=== PATIENT | male | born 1955 | race Asian ===

== ENCOUNTER 2020-04-17 07:51 | Outpatient (REF) | payer OTHER, SELFPAY ==
--- NOTE | 2020-04-17 | XR_ITS ---
EXAMINATION: XR CHEST CLINICAL INFORMATION: Nicotine dependence COMPARISON: None TECHNIQUE: 2 views of the chest were obtained. FINDINGS: Cardiac silhouette is normal in size. The lungs are well aerated. Subtle linear opacity of the left lower lobe likely represents atelectasis versus scarring. No lobar consolidation. No pleural effusion or pneumothorax. Moderate degenerative changes of the spine. XR/XR chest 2V IMPRESSION: No acute pulmonary pathology.
[2020-04-17 08:28] LABS: MANUAL DIFF FLAG NO
[2020-04-17 08:29] LABS: Basophils Percent Auto 0.7 % (0-2); Eosinophils Absolute Auto 0.3 X10*3/uL (0.0-0.4); Eosinophils Percent Auto 4.3 % (0-4); Hematocrit 45.9 % (42-52); Hemoglobin 16.1 g/dl (14.0-18.0); Imm Gran Abs Auto 0.02 X10*3/uL (0.00-0.03); Imm Gran Pct Auto 0.3 % (0.0-0.4); Lymphocytes Absolute Auto 1.9 X10*3/uL (1.2-4.9); Lymphocytes Percent Auto 33.2 % (20-40); Mean Corpuscular HGB Conc 35.1 g/dl (31.0-36.0); Mean Corpuscular Hemoglobin 32.1 pg (27.0-33.0); Mean Corpuscular Volume 91.4 fL (80-98); Mean Platelet Volume 10.9 fL (9.4-12.4); Monocytes Absolute Auto 0.5 X10*3/uL (0.1-1.2); Monocytes Percent Auto 8.8 % (2-11); Neutrophils Absolute Auto 3.1 X10*3/uL (2.0-8.3); Neutrophils Percent Auto 52.7 % (45-73); Platelet Count 167 X10*3/uL (160-400); Red Blood Count 5.02 X10*6/uL (4.60-5.80); Red Cell Distribution Width 12.3 % (11.0-16.0); White Blood Count 5.8 X10*3/uL (4.8-10.8)
[2020-04-17 08:48] LABS: Glucose Urine UA NEG (NEG); Leukocyte Esterase Urine NEG (NEG); Nitrite Urine NEG (NEG); PH 6.5 (5.0-8.0); Urine Blood TRACE (NEG); Urine Ketones NEG (NEG); Urine Protein NEG (NEG-TRACE)
[2020-04-17 08:50] LABS: Appearance Urine CLEAR; Color Urine YELLOW
[2020-04-17 08:58] LABS: RBC Urine 0-2 /HPF (0); WBC Urine 0 /HPF (0-4)
[2020-04-17 09:07] LABS: Alanine Aminotransferase 26 U/L (0-40); Albumin Level 4.5 g/dL (3.5-5.0); Alkaline Phosphatase 63 U/L (39-117); Anion Gap 12 (12-20); Aspartate Amino Transferase 22 U/L (5-37); Bilirubin Total 0.4 mg/dL (0.0-1.0); Blood Urea Nitrogen 16 mg/dL (9-16); Calcium 9.3 mg/dL (8.4-10.2); Carbon Dioxide 30 mmol/L (22-29); Chloride 100 mmol/L (96-108); Cholesterol 220 mg/dL; Estimated Glomerular Filt Rate > 60; Glucose Fasting 111 mg/dL (60-99); HDL Cholesterol 42 mg/dL; LDL Cholesterol Calculated 131 mg/dl; Potassium 4.5 mmol/l (3.3-5.1); Sodium 137 mmol/L (135-145); Total Protein 7.2 g/dL (6.5-8.0); Triglycerides 237 mg/dL
[2020-04-17 09:27] LABS: Prostate Specific Antigen 0.93 ng/mL (<0.05-4.0)
== END 2020-04-17 07:52 | disposition home or self-care (01) ==
LOC: HO.LAB 07:51
PROVIDERS: PCP Internal Medicine; Visit Provider Internal Medicine
DX: G56.01 Carpal tunnel syndrome, right upper limb (principal); F17.219 Nicotine dependence, cigarettes, with unspecified nicotine-induced disorders
CPT/HCPCS: 36415; 71046; 80053; 80061; 81001; 84153; 85025

== ENCOUNTER 2020-09-23 08:12 | Outpatient (REF) | payer OTHER, SELFPAY ==
--- NOTE | ~2020-09-23 | XR_ITS ---
EXAMINATION: XR CHEST CLINICAL INFORMATION: Smoker COMPARISON: None TECHNIQUE: PA and lateral views of the chest were obtained. FINDINGS: There is asymmetric elevation of the right hemidiaphragm. Linear opacities in the left midlung likely correspond to atelectasis or pleural parenchymal scarring. No focal consolidation is identified. No pneumothorax or pleural effusion. Cardiac and mediastinal contours are normal. Pulmonary vasculature is unremarkable. No acute osseous findings. XR/XR chest 2V IMPRESSION: Mild elevation of the right hemidiaphragm which is of uncertain chronicity and etiology in the absence of comparison images. No acute pulmonary findings.
== END 2020-09-23 08:13 | disposition home or self-care (01) ==
LOC: HO.XRAY 08:12
PROVIDERS: PCP Internal Medicine; Visit Provider Internal Medicine
DX: Z87.891 Personal history of nicotine dependence (principal)
CPT/HCPCS: 71046

== ENCOUNTER 2021-01-06 07:35 | Outpatient (REF) | payer OTHER, SELFPAY ==
--- NOTE | ~2021-01-06 | XR_ITS ---
EXAMINATION: XR CHEST CLINICAL INFORMATION: Smoking history COMPARISON: Previous chest x-rays most recent September 2020 and older chest x-ray April 2020 TECHNIQUE: 2 views of the chest were obtained. FINDINGS: The cardiac and mediastinal contours are stable. There is elevation of the right hemidiaphragm. This is similar to most recent exam September 2020 but new from older exam April 2020. There is no pleural effusion or pneumothorax. There are degenerative changes of the spine. XR/XR chest 2V IMPRESSION: Elevation of the right hemidiaphragm. This is similar to most recent exam September 2020 but new from older exam April 2020. Otherwise unremarkable exam.
--- NOTE | ~2021-01-06 | XR_ITS ---
EXAMINATION: XR CERVICAL SPINE CLINICAL INFORMATION: Dizziness. COMPARISON: None. TECHNIQUE: 4 views of the cervical spine were obtained. FINDINGS: No abnormal prevertebral soft tissue swelling is seen. No acute fracture is noted. There is prominent anterior marginal spurring seen C4-C7. There is narrowing of the C6-C7 disc space. XR/XR cervical spine 3V IMPRESSION: Cervical spondylosis C4-C7 which is most significant at the C6-C7 level.
== END 2021-01-06 07:36 | disposition home or self-care (01) ==
LOC: HO.XRAY 07:35
PROVIDERS: PCP Internal Medicine; Visit Provider Internal Medicine
DX: R42 Dizziness and giddiness (principal); F17.219 Nicotine dependence, cigarettes, with unspecified nicotine-induced disorders
CPT/HCPCS: 71046; 72040

== ENCOUNTER → 2021-01-21 07:25 | Outpatient (BNVA) | payer OTHER, SELFPAY | PROVIDERS: PCP Internal Medicine; Visit Provider Nurse Practitioner Family | DX: Z12.11 Encounter for screening for malignant neoplasm of colon (principal) | CPT/HCPCS: 99202 ==

== ENCOUNTER 2021-02-28 14:42 | Outpatient (REF) | payer OTHER, SELFPAY ==
--- NOTE | ~2021-02-28 | CT_ITS ---
EXAMINATION: CT ABDOMEN WITHOUT CONTRAST CLINICAL INFORMATION: Spondylosis COMPARISON: None TECHNIQUE: Contiguous axial thin section helical images of the abdomen were performed without contrast. The data set was reformatted in the coronal and sagittal planes and reviewed on an independent workstation. This CT examination was performed using dose optimization techniques as appropriate, variously including the following: *Automated exposure control *Adjustment of mA and/or kV according to patient size (this includes techniques or standardized protocols for targeted exams where dose is matched to indication/reason for exam; i.e. extremities or head) *Use of iterative reconstruction technique DLP: 301 mGy-cm FINDINGS: LUNG BASES: There is mild atelectatic changes right lung base. Heart size is normal. LIVER, GALLBLADDER, BILIARY TREE: The liver is normal size, shape and contour. No focal lesion or intrahepatic ductal dilatation seen. The gallbladder is contracted and appears unremarkable. PANCREAS: The pancreas is homogeneous in density and normal size. SPLEEN: The spleen is normal size, shape and density. ADRENAL GLANDS AND KIDNEYS: There is a left adrenal lesion measuring 1.6 x 1.3 cm -6.37 Hounsfield units. The right adrenal gland is normal. The kidneys are symmetrical and normal. There is a 1.9 cm midpole left renal cyst. There is a 3 mm nonobstructive radiopaque calculi mid pole left kidney. BOWEL LOOPS: There is scattered stool and gas seen throughout the colon without distention. The small bowel loops are normal caliber. Appendix is normal caliber. No free air or free fluid seen. There is a left paraumbilical hernia containing fat. LYMPH NODES: There are small shotty lymph nodes. VASCULAR: The abdominal aorta is normal caliber. The IVC is normal caliber. BONES: There are degenerative disc changes and vacuum disc phenomena at L4-L5 disc levels with mild ventral and dorsal spondylosis. CT/CT abdomen wo con IMPRESSION: Significant radiopaque calculi and partially exophytic cyst midpole left kidney. No caliectasis or hydronephrosis. 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 It has been stable since the previous study. Left paraumbilical hernia containing fat
== END 2021-02-28 14:43 | disposition home or self-care (01) ==
LOC: HO.CT 14:42
PROVIDERS: Visit Provider Internal Medicine
DX: M43.02 Spondylolysis, cervical region (principal); K44.9 Diaphragmatic hernia without obstruction or gangrene
CPT/HCPCS: 74150

== ENCOUNTER 2021-03-30 07:00 | Outpatient (RCR) | payer OTHER, SELFPAY | END 2021-03-30 11:46 | disposition home or self-care (01) | LOC: HO.PTCHIC 07:00 | PROVIDERS: PCP Internal Medicine; Visit Provider Internal Medicine | DX: M43.02 Spondylolysis, cervical region (principal) | CPT/HCPCS: 97110; 97140; 97161; 97162 ==

== ENCOUNTER 2021-04-08 12:43 | Day surgery (SDC) | payer OTHER, SELFPAY ==
[2021-02-23 10:21] VITALS: BMI 30.2
--- NOTE | 2021-02-25 11:56 | HO.ANESPROP2 ---
HPI - Anesthesia Eval Consult details Narrative: 66yo M for Colonoscopy [facility] Past Medical History Medical History Smoker Surgical History Surgical History Hx of umbilical hernia repair Social History Social History (Updated 01/21/21 @ 08:13 by Jenni Miramontes) Household Members: Spouse Alcohol intake: never Patient Tobacco Use Status: Current everyday Tobacco user Tobacco use type: Cigarette Meds Allergies Allergy/AdvReac Type Severity Reaction Status Date / Time No Known Allergies Allergy Verified 01/21/21 08:09 Exam Exam Date and Time: February 25, 2021 1156 Height,Weight and Vital Signs: Height 5 ft 5 in Weight 82.554 kg
--- NOTE | 2021-04-07 10:45 | P.CONAN_ITS ---
Documented by User: Donya Zuñiga NP 04/07/21 10:45 HPI - Anesthesia Eval Consult details Narrative: 66yo M for Colonoscopy [facility] Past Medical History Medical History Cervical spondylosis Elevated cholesterol Smoker Surgical History Surgical History Hx of umbilical hernia repair Social History Social History Household Members: Spouse Alcohol intake: never Patient Tobacco Use Status: Current everyday Tobacco user Tobacco use type: Cigarette Cigarette Packs Per Day: 1 Cigarettes Per Day: 20.0 Years Smoked: 40 Smoked in Last 30 Days: Yes Use of substances other than those prescribed or required for medical reasons: No Are you DNR?: No Advance Directives: No Advance Directives Information Provided: Yes Meds Allergies Allergy/AdvReac Type Severity Reaction Status Date / Time No Known Allergies Allergy Verified 01/21/21 08:09 Home Medications Medication Instructions Recorded Confirmed Last Taken Type atorvastatin 10 mg tablet 1 tab PO DAILY 04/01/21 04/01/21 Unknown History bupropion HCl 100 mg tablet 1 tab PO BID 04/01/21 04/01/21 Unknown History Exam Exam Date and Time: April 07, 2021 1045 Height,Weight and Vital Signs: Height 5 ft 5 in Weight 82.554 kg Assessment and Plan Assessment Anesthesia Assessment: Chart Reviewed Documented by User: Angelika Beckford MD 04/08/21 13:30 [facility] Past Medical History Medical History Cervical spondylosis Elevated cholesterol Smoker Surgical History Surgical History Hx of umbilical hernia repair History of Problems with Anesthesia: No Social History Social History Household Members: Spouse Alcohol intake: never Patient Tobacco Use Status: Current everyday Tobacco user Tobacco use type: Cigarette Cigarette Packs Per Day: 1 Cigarettes Per Day: 20.0 Years Smoked: 40 Smoked in Last 30 Days: Yes Use of substances other than those prescribed or required for medical reasons: No Are you DNR?: No Advance Directives: No Advance Directives Information Provided: Yes Meds Allergies Allergy/AdvReac Type Severity Reaction Status Date / Time No Known Allergies Allergy Verified 01/21/21 08:09 Home Medications Medication Instructions Recorded Confirmed Last Taken Type atorvastatin 10 mg tablet 1 tab PO DAILY 04/01/21 04/01/21 Unknown History bupropion HCl 100 mg tablet 1 tab PO BID 04/01/21 04/01/21 Unknown History Exam Airway Mallampati Class: II (Edentulous) TM Dist: >3cm Neck ROM: Full Denture: Upper Partial: Lower Loose/Missing/Broken Teeth: Yes, Upper and Lower Heart: RRR Lungs: CTA Assessment and Plan Assessment Anesthesia Assessment: Anesthesia Plan Discussed Final Anesthetic Review History of Problems with Anesthesia: No NPO: Yes ASA Class: II Final Preanesthetic Review: Meds/Allgs Chart Reviewed, Consent Obtained/Reviewed and Anes Risks/Benef Reviewed Patient Risk: Low Procedure Risk: Low Anesthetic Plan Anesthetic Plan: MAC: Disposition: Standard PACU
[2021-04-08 13:12] VITALS: BMI 29.9
[2021-04-08 13:14] VITALS: BP 117/83; PULSE 78; RESP 16; TEMP 36.7; O2SAT 98
--- NOTE | 2021-04-08 13:14 | MHC.SHP ---
Pre-Procedural Eval Section A Date of Service: 04/08/21 The patient is an INPATIENT: No The History & Physical has been completed within 30 days and I have reviewed it.: No Section B Chief Complaint: Screening Relevant Family History (Specify if Yes): No Relevant Social History: Tobacco Use Present Medications: see Short Stay Collaborative assessment Medical History: No relevant PMH History of Previous Operations: Relevant previous surgery/procedure and date(s) (Hx of umbilical hernia repair) Allergies: Allergies Allergy/AdvReac Type Severity Reaction Status Date / Time No Known Allergies Allergy Verified 01/21/21 08:09 Review of Systems Sugical H&P ROS: Negative: Constitution, Cardiovascular, Respiratory and Gastrointestinal Exam Surgical H&P Exam: Normal: Heart, Normal: Lungs, Normal: Extremities and Normal: Abdomen Plan I have reviewed the history and physical and performed a pertinent physical examination on my patient. No changes have occurred unless specified.
--- NOTE | 2021-04-08 13:15 | PC.NURSE ---
Patient in preop. States he drank a cup of black coffee at 0600 this morning. No milk or sugar in coffee. Patient also states that he finished his prep this am with 5-6 water bottles. Last water bottle was finished at about 1200. Dr. Beckford made aware and came to bedside. Dr. Beckford verified with patient again the times and amounts of liquid consumed this AM. Patient states no solids were consumed since yesterday. No new orders. Okay to proceed with procedure.
[2021-04-08] MEDS: Lactated Ringers 1,000 ML 100 ML IVCONT (13:27)
--- NOTE | 2021-04-08 14:03 | P.OP_ITS ---
Operative Note Operative Note Date of Service: 04/08/21 Narrative: Pre-op diagnosis:?Colon cancer screening Post-op diagnosis:?other (Colon polyps, diverticulosis, hemorrhoids) Procedure:? COLONOSCOPY TILL CECUM WITH BIOPSIES AND SNARE POLYPECTOMY Consent: Indications for the procedure and potential complications of bleeding, perforation, reaction to medications and missed diagnosis were discussed with the patient and informed consent was obtained. Instrument: Olympus PCF H 190 L variable stiffness pediatric colonoscope Monitoring: Vital signs and clinical assessment, intermittent blood pressure monitoring, continuous EKG monitoring, Pulse oximetry and Carbon Dioxide monitoring were done throughout the procedure. Colon withdrawl time was 22 minutes. Procedure: The patient was placed in the left lateral decubitis position and pre-procedure medications were administered. After a digital rectal examination of the ano-rectum, the video colonoscope was inserted into the rectum and advanced through the colon to the cecum. The colonoscope was slowly withdrawn in a retrograde panoramic fashion and the colon mucosa was carefully examined including a retroflexed view of the rectum. Findings and interventions are described below. Procedure Difficulty: Without difficulty Findings: Terminal Ileum: Not evaluated Cecum:? Normal Ascending Colon:? Normal Transverse Colon:? Two 8- 10 mm sessile polyp removed with a cold snare. A 3-4 mm sessile polyp removed with the cold biopsy Descending Colon:? Normal Sigmoid Colon:? A 7-8 mm sessile polyp removed with a cold snare. A 10-12 mm diminutive appearing polyp at 30 cms - biopsied. Two 12-15 mm sessile polyps removed with a hot snare. Moderate diverticulosis Rectum:? Normal Ano-rectum:? Moderate internal hemorrhoids Colon preparation: Excellent ? Impression and Post Procedure Diagnosis: Colonoscopy Findings: Seven small to medium sized polyps removed Moderate diverticulosis seen in the sigmoid colon Moderate hemorrhoids on retroflexed exam. Plan: Await pathology results Patient has an appointment on 04/22/21 in the GI Clinic with ? Isabel York, WILLIAM-NIESHA . Repeat Colonoscopy interval based on path results - in 3 years if polyps are adenomatous and 10 years if polyps are hyperplastic. Above findings were reviewed with the patient and colon polyps and diverticulosis handouts were given in the discharge area Surgeon:?Neal Sears MD Anesthesia:?MAC (Yuliet Styles CRNA) Was an Accredited Farm Manager used for this Procedure?:?Yes Accredited Farm Manager:?Marlene Rivas Estimated blood loss (mL):?0 Pathology:?other (A. transverse colon polyps (3)? B. sigmoid polyp? C. polyp at 30 cm? D. polyps at 25 cm (2)) Condition:?stable Disposition:?PACU
[2021-04-08 15:06] VITALS: BP 96/55; PULSE 68; RESP 19; TEMP 36.4; O2SAT 99
[2021-04-08 15:21] VITALS: BP 122/68; PULSE 66; RESP 18; O2SAT 99
[2021-04-08 15:34] VITALS: BP 111/54; PULSE 68; RESP 18; TEMP 36.4; O2SAT 100
== END 2021-04-08 15:53 | disposition home or self-care (01) ==
PROVIDERS: PCP Internal Medicine; Visit Provider Internal Medicine Gastroenterology
PROC: 0DJD8ZZ Inspection of Lower Intestinal Tract, Via Natural or Artificial Opening Endoscopic (ICD-10-PCS; CPT 45378; principal; 2021-04-08 13:40)
DX: Z12.11 Encounter for screening for malignant neoplasm of colon (principal); D12.3 Benign neoplasm of transverse colon; D12.4 Benign neoplasm of descending colon; K57.30 Diverticulosis of large intestine without perforation or abscess without bleeding; K64.8 Other hemorrhoids; F17.210 Nicotine dependence, cigarettes, uncomplicated
CPT/HCPCS: 45385; 45380; 88305

== ENCOUNTER → 2021-04-22 08:39 | Outpatient (BNVA) | payer OTHER, SELFPAY | PROVIDERS: PCP Internal Medicine; Visit Provider Nurse Practitioner Family | DX: K57.90 Diverticulosis of intestine, part unspecified, without perforation or abscess without bleeding (principal); K64.8 Other hemorrhoids; D36.9 Benign neoplasm, unspecified site; Z98.890 Other specified postprocedural states | CPT/HCPCS: 99212 ==

== ENCOUNTER → 2021-07-22 07:47 | Outpatient (BNVA) | payer OTHER, SELFPAY | PROVIDERS: PCP Internal Medicine; Visit Provider Nurse Practitioner Family | DX: K57.90 Diverticulosis of intestine, part unspecified, without perforation or abscess without bleeding (principal) | CPT/HCPCS: 99212 ==

== ENCOUNTER → 2022-09-11 07:46 | Outpatient (BNVA) | payer MEDICARE, MEDICAID, SELFPAY | PROVIDERS: PCP Internal Medicine; Referring Provider Internal Medicine; Visit Provider Nurse Practitioner Family | DX: K57.90 Diverticulosis of intestine, part unspecified, without perforation or abscess without bleeding (principal) | CPT/HCPCS: 99212 ==

== ENCOUNTER 2022-12-19 07:49 | Outpatient (AMB) | payer MEDICARE, MEDICAID, SELFPAY ==
--- NOTE | 2022-12-19 08:11 | A.OFFVIS_ITS ---
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 He describes his pain as sharp and severe in nature. He did injure his shoulder several years ago while lifting a heavy object. Since that time his symptoms have gotten worse in spite of continued non operative treatments. He has tried Tylenol and diclofenac which gave him minimal relief. He has also done physical therapy for 12 weeks over the last 6 months which aggravated his pain. He has had injections in the past which gave him only temporary relief. The patient reports difficulty lifting his right hand above shoulder height. Allergies No Known Allergies Allergy (Verified 12/19/22 08:16) Medication List - Last Reviewed 12/19/22 by Liz Bashir CMA atorvastatin 1 tab PO DAILY bupropion HCl 1 tab PO BID methylcellulose (laxative) (Citrucel) 500 mg PO DAILY PFSH Medical History Cervical spondylosis Diverticulosis Elevated cholesterol Left shoulder pain Smoker Tubular adenoma Surgical History Hx of colonoscopy Hx of umbilical hernia repair Social History Household Members: Spouse Alcohol intake: never Patient Tobacco Use Status: Current everyday Tobacco user Tobacco use type: Cigarette Cigarette Packs Per Day: 1 Cigarettes Per Day: 20.0 Years Smoked: 40 Physical Exam Const Other: Well-nourished well-developed very friendly male awake alert and oriented x3 in no acute distress Extrem Other: Bilateral upper extremity examination shows good capillary refill, no skin lesions noted, normal sensation light touch Right shoulder examination shows decreased range of motion when compared to his left shoulder, 4+ out of 5 strength with supraspinatus testing, positive impingement signs, tenderness over his acromioclavicular joint, no instability Results Reviewed Results Reviewed: X-rays of the patient's right shoulder taken today show severe acromioclavicular joint narrowing, a type 2 acromion, no acute bony abnormalities Assessment & Plan Assessment & Plan (1) Impingement of right shoulder: Code(s): M25.811 - Other specified joint disorders, right shoulder Plan Mr. Abdulbaki presents with progressively worsening right shoulder pain and weakness due to impingement syndrome, acromioclavicular joint arthritis and possible full-thickness rotator cuff tearing. Thus, I will send the patient for an MRI of his right shoulder to further evaluate the status of his rotator cuff tendons. If he does have a full-thickness tear I will recommend surgical repair to optimize his future functional level. He will continue with his range of motion exercises in the meantime to prevent stiffness. Feel free to call me at any time should questions regarding his orthopedic management arise. Thank you very much for asking me to see this very friendly gentleman. I spent 22 minutes in reviewing the patient's records and imaging studies, gisselle selby the patient and documenting in the medical record. Orders: Orders MR shoulder RT wo con Today M75.100 - Unspecified rotator cuff tear or rupture of unspecified shoulder, not specified as traumatic Coding Level of Care Code New Pt Level 2 (86780) Diagnoses Impingement of right shoulder M25.811
== END 2022-12-19 08:47 | disposition home or self-care (01) ==
PROVIDERS: PCP Internal Medicine; Visit Provider Orthopaedic Surgery
DX: M25.811 Other specified joint disorders, right shoulder (principal)
CPT/HCPCS: 99202

== ENCOUNTER 2022-12-19 07:49 | Outpatient (REF) | payer MEDICARE, MEDICAID, SELFPAY ==
--- NOTE | ~2022-12-19 | XR_ITS ---
EXAMINATION: XR SHOULDER, RIGHT CLINICAL INFORMATION: Pain COMPARISON: None available. TECHNIQUE: Neutral and transscapular Y views of the right shoulder. FINDINGS: Glenohumeral and acromioclavicular alignment preserved on these images provided. Mild degenerative changes in the acromioclavicular joint. No abnormal soft tissue calcifications identified adjacent to the humeral head XR/XR shoulder RT min 2V IMPRESSION: Mild degenerative changes in the acromioclavicular joint.
== END 2022-12-19 07:50 | disposition home or self-care (01) ==
LOC: HO.HOSX 07:49
PROVIDERS: PCP Internal Medicine; Visit Provider Orthopaedic Surgery
DX: M25.811 Other specified joint disorders, right shoulder (principal)
CPT/HCPCS: 73030; 99202

== ENCOUNTER 2023-01-25 07:10 | Outpatient (REF) | payer MEDICARE, MEDICAID, SELFPAY ==
--- NOTE | ~2023-01-25 | MR_ITS ---
EXAMINATION: MR SHOULDER WITHOUT CONTRAST, RIGHT CLINICAL INFORMATION: Pain, decreased range of motion. COMPARISON: None available. TECHNIQUE: MRI of the shoulder without contrast was performed on a high-field scanner. FINDINGS: ROTATOR CUFF: Mild-moderate supraspinatus tendinosis. Partial-thickness bursal and articular aspect tearing in the anterior/middle fibers measuring 2 x 1.6 cm (AP x ML). Mild infraspinatus tendinosis. Thin intrasubstance tear in the proximal tendon measuring 0.9 x 0.7 cm (AP x ML). Teres minor is intact. Moderate subscapularis tendinosis with deep surface partial tearing. No muscle atrophy or fatty infiltration. BICEPS: Biceps tendinosis, with undersurface fraying/partial tear. There appears to be a longitudinally propagating intrasubstance tear in the tendon as it courses in the bicipital groove. The tendon is partially medially subluxed, draped over the lesser tuberosity and protruding into the distal biceps tendon. CORACOACROMIAL ARCH: The undersurface of the acromion is curved with no subacromial spur. Moderate acromioclavicular arthritis. LABRUM/CAPSULE: Intrasubstance signal in the superior, posterior labrum, appearing degenerative. No displaced labral tear is identified. No paralabral cyst. GLENOHUMERAL JOINT/MARROW: There is a lobulated septated bright T2/low T1 focus, located anterior to the proximal humerus. This lies lateral to the deltoid muscle and epiphysis. The deep surface abuts the underlying humerus. The deltoid muscle overlies this focus. This measures up to approximately 4.2 cm craniocaudal, 1.5 cm AP, 1.8 cm transverse. This focus is of uncertain etiology. Differential considerations include ganglion cyst; infectious or inflammatory process in the appropriate clinical circumstance cannot be excluded. Small marginal glenoid spurs. Small joint fluid. No acute fracture. MR/MR shoulder RT wo con IMPRESSION: 1. Mild-moderate supraspinatus tendinosis. 2 x 1.6 cm partial-thickness tearing anteriorly. 2. Mild infraspinatus tendinosis. 0.9 x 0.7 cm intrasubstance tear in the proximal tendon. 3. Moderate subscapularis tendinosis with deep surface partial tearing. 4. Biceps tendinosis with undersurface fraying/partial tear. Partial medial subluxation of the tendon, draped over the lesser tuberosity and protruding into the distal biceps tendon. Probable component of longitudinally propagating intrasubstance tear. 5. Lobulated, septated, cystic-appearing focus anterior to the proximal humerus measuring 4.2 x 1.5 x 1.8 cm. Imaging features as detailed above. This is of uncertain etiology. Differential considerations include ganglion cyst; infectious or inflammatory process in the appropriate clinical circumstance cannot be excluded. Recommend orthopedic consultation, clinical correlation management. Followup imaging for reassessment as clinically warranted. 6. Moderate acromioclavicular arthritis. Mild glenohumeral joint arthritis.
== END 2023-01-25 07:11 | disposition home or self-care (01) ==
LOC: HO.MRI 07:10
PROVIDERS: PCP Internal Medicine; Visit Provider Orthopaedic Surgery
DX: M75.101 Unspecified rotator cuff tear or rupture of right shoulder, not specified as traumatic (principal)
CPT/HCPCS: 73221

== ENCOUNTER 2023-05-05 07:56 | Outpatient (REF) | payer MEDICARE, MEDICAID, SELFPAY ==
[2023-05-05 08:57] LABS: Anion Gap 12 (12-20); Blood Urea Nitrogen 18 mg/dL (9-16); Calcium 9.7 mg/dL (8.4-10.2); Carbon Dioxide 27 mmol/L (22-29); Chloride 107 mmol/L (96-108); Estimated Glomerular Filt Rate > 60; Glucose Fasting 106 mg/dL (60-99); Potassium 4.8 mmol/L (3.3-5.1); Sodium 141 mmol/L (135-145)
[2023-05-05 09:15] LABS: Erythrocyte Sedimentation Rate 3 MM/HR (0-15)
[2023-05-10 20:14] LABS: Acetylcholine Recept. Blocking <15 (<15)
[2023-05-11 15:18] LABS: Acetylcholine Receptor Binding <0.30 nmol/L
[2023-05-16 15:19] LABS: Acetylcholine Recep Modulating 22
== END 2023-05-05 07:57 | disposition home or self-care (01) ==
LOC: HO.LAB 07:56
PROVIDERS: PCP Internal Medicine; Visit Provider Psychiatry & Neurology Neurology
DX: H53.2 Diplopia (principal)
CPT/HCPCS: 36415; 80048; 83519; 85652

== ENCOUNTER 2023-05-19 07:16 | Outpatient (REF) | payer MEDICARE, MEDICAID, SELFPAY ==
[2023-06-21 08:52] LABS: Lyme Abs Screen <0.90
== END 2023-05-19 07:17 | disposition home or self-care (01) ==
LOC: HO.LAB 07:16
PROVIDERS: PCP Internal Medicine; Visit Provider Psychiatry & Neurology Neurology
DX: G52.9 Cranial nerve disorder, unspecified (principal)
CPT/HCPCS: 36415; 86617; 86618

== ENCOUNTER 2023-06-19 07:45 | Outpatient (REF) | payer MEDICARE, MEDICAID, SELFPAY ==
[2023-06-19 10:05] LABS: Anion Gap 13 (12-20); Blood Urea Nitrogen 19 mg/dL (9-16); Calcium 9.4 mg/dL (8.4-10.2); Carbon Dioxide 29 mmol/L (22-29); Chloride 104 mmol/L (96-108); Estimated Glomerular Filt Rate > 60; Glucose Fasting 89 mg/dL (60-99); Potassium 4.3 mmol/L (3.3-5.1); Sodium 142 mmol/L (135-145)
== END 2023-06-19 07:46 | disposition home or self-care (01) ==
LOC: HO.LAB 07:45
PROVIDERS: PCP Internal Medicine; Visit Provider Psychiatry & Neurology Neurology
DX: G70.00 Myasthenia gravis without (acute) exacerbation (principal)
CPT/HCPCS: 36415; 80048

== ENCOUNTER 2023-07-16 07:22 | Outpatient (REF) | payer MEDICARE, MEDICAID, SELFPAY ==
--- NOTE | ~2023-07-16 | CT_ITS ---
EXAMINATION: CT CHEST WITHOUT AND WITH CONTRAST CLINICAL INFORMATION: Myasthenia gravis COMPARISON: 02/28/2021 and 12/18/2012 abdomen CTs. TECHNIQUE: Multidetector volumetric CT imaging of the chest was obtained before and after the administration of 50 mL of Omnipaque 350 intravenous contrast without immediate adverse reactions. Axial MIP volume rendering provided. Sagittal and coronal reformatted images were obtained. This CT examination was performed using dose optimization techniques as appropriate, variously including the following: *Automated exposure control *Adjustment of mA and/or kV according to patient size (this includes techniques or standardized protocols for targeted exams where dose is matched to indication/reason for exam; i.e. 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 LUNGS: Trachea and bronchi are patent. Mild bronchial wall thickening. Mild paraseptal emphysema. Scattered atelectasis. 6 mm RLL nodule, 6:230. This was partially visualized on 12/18/[address] MEDIASTINUM: Unremarkable thyroid. No pathologic lymphadenopathy. Right hilar calcified lymph node. Nonenlarged heart. No pericardial effusion. Nonaneurysmal aorta with atherosclerotic calcifications. Nonenlarged pulmonary arteries. CORONARY ARTERY CALCIFICATION: None visualized on this study. PLEURA: There is no pleural effusion. No pleural mass or thickening. AXILLA: No lymphadenopathy. UPPER ABDOMEN: Diffuse hypodensity to liver parenchyma. Partial inclusion of unchanged 1.5 cm benign-appearing left adrenal lesion from 2013. OSSEOUS STRUCTURES: Degenerative changes. No suspicious osseous lesions. CT/CT chest wo/w IV con IMPRESSION: 6 mm right lower lobe pulmonary nodule, partially visualized in 2013 and therefore considered benign. Stable left adrenal lesion. No further follow-up recommended. Fleischner guidelines were followed.
[2023-07-16] MEDS: iohexoL 350 MG/ML 100 ML INFUS..BTL 65 ML IV (08:29)
== END 2023-07-16 07:23 | disposition home or self-care (01) ==
LOC: HO.CT 07:22
PROVIDERS: PCP Internal Medicine; Visit Provider Psychiatry & Neurology Neurology
DX: G70.00 Myasthenia gravis without (acute) exacerbation (principal)
CPT/HCPCS: 71270; Q9967

== ENCOUNTER 2023-09-12 08:03 | Outpatient (AMB) | payer MEDICARE, MEDICAID, SELFPAY ==
--- NOTE | 2023-09-12 08:06 | MHC.OFFVIS ---
Intake Vital Signs 09/12/23 08:07 Height 5 ft 6.5 in Weight 180 lb 12.465 oz BMI 28.7 BP 137/63 Blood Pressure Location Lt brachial Position Sitting Pulse 80 Intake Visit Reasons: 1 year follow up Intake Note: Tomy presents in the office as a 1 year follow up. CC: No concerns just a check up. Allergies No Known Allergies Allergy (Verified 09/12/23 08:07) HPI 1 year follow up HPI Details LAST VISIT: Diverticulosis Continue high-fiber diet. Patient will return next year for colorectal screening sooner if needed. Patient will need to go for colonoscopy next year in April, sooner if clinically necessary. Patient is agreeable to this plan and verbalizes understanding of instructions. He was given the opportunity to ask questions and all questions answered. TODAY'S VISIT Patient is here today for follow-up. Patient reports that he has been feeling well. Reports that he has feeling well without any GI concerning issues today. Patient denies any GI concerning symptoms. Denies any melena, hematochezia, unintentional weight loss or ribbon like stools. Patient denies any dyspepsia, dysphagia or odynophagia. Last colonoscopy in April of 2021 several polyps found and colonoscopy was recommended to be repeated in April. Patient would like to return closer to the time when he is due to go over the prep. Patient would like to have his daughter or his son come to the appointment. PFSH Medical History Left shoulder pain Diverticulosis Tubular adenoma Elevated cholesterol Cervical spondylosis Smoker Surgical History Hx of colonoscopy Hx of umbilical hernia repair Social History Household Members: Spouse Alcohol intake: never Patient Tobacco Use Status: Current everyday Tobacco user Tobacco use type: Cigarette Cigarette Packs Per Day: 1 Cigarettes Per Day: 20.0 Years Smoked: 40 Review of Systems Const Denies weight gain and Denies weight loss ENT Reports no additional complaints, Denies dysphagia and Denies odynophagia Card Reports no additional complaints Resp Reports no additional complaints GI Denies abdominal pain, Denies belching, Denies melena, Denies bloating, Denies change in bowel habits, Denies dysphagia, Denies excessive flatus, Denies dyspepsia, Denies heartburn, Denies diarrhea, Denies loose stools, Denies nausea, Denies odynophagia and Denies vomiting Reports no additional complaints Musc Reports no additional complaints Neuro Reports no additional complaints Psych Reports no additional complaints Endo Reports no additional complaints Physical Exam Vital Signs: Last Vital Signs Pulse 80 09/12/23 08:07 BP 137/63 09/12/23 08:07 BMI result Body Mass Index 28.7 Const General: healthy appearing, no acute distress and well developed Nutritional Appearance: well nourished Orientation/consciousness: patient oriented x3 Resp Effort & Inspection: normal respiratory effort, able to speak in complete sentences, no tracheal deviation and symmetric chest movement Auscultation: clear to auscultation bilaterally Cardio Rate: regular rate GI Inspection: Yes normal to inspection and No distended Palpation (GI): Soft to palpation, not firm, nontender and No hepatosplenomegaly present Auscultation: normal bowel sounds General: Yes no CVA tenderness Back/Spine/Pelvis Back: no CVA tenderness Skin General skin exam: elasticity normal, turgor normal and dry skin Neuro General: patient oriented x3 Psych Appearance: grossly normal Mental Status: mental status grossly normal Assessment & Plan Assessment & Plan (1) Diverticulosis: Code(s): K57.90 - Diverticulosis of intestine, part unspecified, without perforation or abscess without bleeding Plan Continue high-fiber diet. May take probiotic daily. Patient will return in January to discuss going for colonoscopy. Patient denies any other GI concerning symptoms. He is agreeable to plan and verbalizes understanding of instructions. He was given the opportunity to ask questions and all questions answered. Thank you for allowing me to participate in his care Coding Level of Care Code Est Pt Level 3 (12666) Diagnoses Diverticulosis K57.90 Time Spent (min) 25 Comment 15 minutes spent with patient and additional 10 minutes spent reviewing his records
[2023-09-12 08:07] VITALS: BP 137/63; PULSE 80; BMI 28.7
== END 2023-09-12 08:28 | disposition home or self-care (01) ==
PROVIDERS: Visit Provider Nurse Practitioner Family
DX: K57.90 Diverticulosis of intestine, part unspecified, without perforation or abscess without bleeding (principal)
CPT/HCPCS: 99213

== ENCOUNTER → 2023-09-12 08:03 | Outpatient (BNVA) | payer MEDICARE, MEDICAID, SELFPAY | PROVIDERS: Visit Provider Nurse Practitioner Family | DX: K57.90 Diverticulosis of intestine, part unspecified, without perforation or abscess without bleeding (principal) | CPT/HCPCS: 99212 ==

== ENCOUNTER 2024-01-15 15:55 | Outpatient (AMB) | payer MEDICARE, MEDICAID, SELFPAY ==
[2024-01-15 15:58] VITALS: BP 120/54; PULSE 76; O2SAT 96; BMI 29.6
--- NOTE | 2024-01-15 15:58 | MHC.OFFVIS ---
Vital Signs 01/15/24 15:58 Height 5 ft 6.5 in Weight 186 lb 1.122 oz BMI 29.6 BP 120/54 L Blood Pressure Location Rt brachial Position Sitting Pulse 76 Pulse Source Pulse Oximeter Pulse Oximetry (%) 96 Oxygen Delivery Method Room Air Intake Visit Reasons: 4 mth follow up Intake Note: Tomy presents in office today for a scheduled 4 mos FUV. CC; Pt reports that they have remained stable since their last visit. Pt denies any new concerns or sx at this time. 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 May take probiotic daily. Patient will return in January to discuss going for colonoscopy. Patient denies any other GI concerning symptoms. He is agreeable to plan and verbalizes understanding of instructions. He was given the opportunity to ask questions and all questions answered. ? TODAY'S VISIT Patient is here today for follow-up and to discuss going for colonoscopy. Patient reports that he has been doing well. States that he is working less hours. He continues to feel well. Denies any abdominal pain or discomfort. Denies dyspepsia, dysphagia or odynophagia. Denies melena, hematochezia, unintentional weight loss or ribbon like stools. Diagnosed with tubular adenoma in the past recommendation for 3 years follow-up. Patient reports that he is moving his bowels well without any issues. Patient is on low-dose aspirin. Patient denies any cardiac or respiratory symptoms. No issues with anesthesia in the past. No history of sleep apnea. PFSH Medical History Left shoulder pain Diverticulosis Tubular adenoma Elevated cholesterol Cervical spondylosis Smoker Surgical History Hx of colonoscopy Hx of umbilical hernia repair Social History Household Members: Spouse Alcohol intake: never Patient Tobacco Use Status: Current everyday Tobacco user Tobacco use type: Cigarette Cigarette Packs Per Day: 1 Cigarettes Per Day: 20.0 Years Smoked: 40 Review of Systems Const Denies weight gain and Denies weight loss ENT Reports no additional complaints, Denies dysphagia and Denies odynophagia Card Reports no additional complaints Resp Reports no additional complaints GI Denies abdominal pain, Denies belching, Denies melena, Denies bloating, Denies change in bowel habits, Denies dysphagia, Denies excessive flatus, Denies dyspepsia, Denies heartburn, Denies diarrhea, Denies loose stools, Denies nausea, Denies odynophagia and Denies vomiting Reports no additional complaints Musc Reports no additional complaints Neuro Reports no additional complaints Psych Reports no additional complaints Endo Reports no additional complaints Physical Exam Vital Signs: Last Vital Signs Pulse 76 01/15/24 15:58 BP 120/54 L 01/15/24 15:58 Pulse Ox 96 01/15/24 15:58 Oxygen Delivery Method Room Air 01/15/24 15:58 BMI result Body Mass Index 29.6 Const General: healthy appearing, no acute distress and well developed Nutritional Appearance: well nourished Orientation/consciousness: patient oriented x3 Resp Effort & Inspection: normal respiratory effort, able to speak in complete sentences, no tracheal deviation and symmetric chest movement Auscultation: clear to auscultation bilaterally Cardio Rate: regular rate GI Inspection: Yes normal to inspection and No distended Palpation (GI): Soft to palpation, not firm, nontender and No hepatosplenomegaly present Auscultation: normal bowel sounds General: Yes no CVA tenderness Back/Spine/Pelvis Back: no CVA tenderness Skin General skin exam: elasticity normal, turgor normal and dry skin Neuro General: patient oriented x3 Psych Appearance: grossly normal Mental Status: mental status grossly normal Assessment & Plan Assessment & Plan (1) Diverticulosis: Code(s): K57.90 - Diverticulosis of intestine, part unspecified, without perforation or abscess without bleeding Category: Medical (2) Tubular adenoma: Code(s): D36.9 - Benign neoplasm, unspecified site Category: Medical (3) Screen for colon cancer: Code(s): Z12.11 - Encounter for screening for malignant neoplasm of colon Plan Patient currently has no GI concerning symptoms. History of tubular adenoma and is due for colonoscopy now. Denies melena, hematochezia, unintentional weight loss or ribbon like stools. Denies any dyspepsia, dysphagia or odynophagia. What to expect before, during and after procedure discussed with patient. Stressed the importance of good bowel prep and clear liquid diet before procedure. Daily low-dose aspirin. Message sent to surgical schedulers to schedule procedure for patient. I will see patient after the procedure, sooner on as needed basis. He is agreeable to this plan and verbalizes understanding of instructions. He was given the opportunity to ask questions and all questions answered. Thank you for allowing me to participate in his care Medications: New bisacodyl (Dulcolax (bisacodyl)) take 4 tabs at noon the day before your colonoscopy 20 mg (4 x 5 mg) PO ONCE 1 day 4 tabs 0RF Z12.11 - Encounter for screening for malignant neoplasm of colon polyethylene glycol 3350 (Miralax) As directed by gastroenterology department at [facility] 238 grams PO ONCE 238 grams 0RF Z12.11 - Encounter for screening for malignant neoplasm of colon Coding Level of Care Code Est Pt Level 3 (50526) Diagnoses Diverticulosis K57.90 Tubular adenoma D36.9 Screen for colon cancer Z12.11 Time Spent (min) 30 Comment 20 minutes spent with patient and additional 10 minutes spent reviewing his records
== END 2024-01-15 16:49 | disposition home or self-care (01) ==
PROVIDERS: PCP Internal Medicine; Visit Provider Nurse Practitioner Family
DX: K57.90 Diverticulosis of intestine, part unspecified, without perforation or abscess without bleeding (principal); D36.9 Benign neoplasm, unspecified site; Z12.11 Encounter for screening for malignant neoplasm of colon
CPT/HCPCS: 99213

== ENCOUNTER → 2024-01-15 15:55 | Outpatient (BNVA) | payer MEDICARE, MEDICAID, SELFPAY | PROVIDERS: PCP Internal Medicine; Visit Provider Nurse Practitioner Family | DX: Z12.11 Encounter for screening for malignant neoplasm of colon (principal); K57.90 Diverticulosis of intestine, part unspecified, without perforation or abscess without bleeding; D36.9 Benign neoplasm, unspecified site | CPT/HCPCS: 99212 ==

== ENCOUNTER 2024-04-01 07:21 | Day surgery (SDC) | payer MEDICARE, MEDICAID, SELFPAY ==
--- NOTE | 2024-03-31 11:44 | HO.ANESPROP2 ---
Documented by User: Donya Zuñiga NP 03/31/24 11:44 HPI - Anesthesia Eval Consult details Narrative: 69yo M for Colonoscopy PMFSH Active Problems Active Problems: All Active Problems Impingement of right shoulder (Acute) Diverticulosis (Acute) Tubular adenoma (Acute) Past Medical History Medical History Left shoulder pain Diverticulosis Tubular adenoma Elevated cholesterol Cervical spondylosis Smoker Surgical History Surgical History Hx of colonoscopy Hx of umbilical hernia repair History of Problems with Anesthesia: No Social History Social History Household Members: Spouse Are you a primary critical care transport nurse to a significant other at home: No Do you presently have visiting nurse or other home services: No Alcohol intake: never Patient Tobacco Use Status: Never used Tobacco Tobacco use type: Cigarette Cigarette Packs Per Day: 1 Cigarettes Per Day: 20.0 Years Smoked: 40 Have you been hit, kicked, punched, or otherwise hurt by someone within the past year? If so, by whom?: No Are you DNR?: No Advance Directives: No Advance Directives Information Provided: Yes Recently lost weight without trying: No Nutrition Risks: No Nutritional Risk Meds Allergies Allergy/AdvReac Type Severity Reaction Status Date / Time No Known Allergies Allergy Verified 04/01/24 08:16 Home Medications ?Medication ?Instructions ?Recorded ?Confirmed ?Last Taken ?Type bupropion HCl 100 mg tablet 1 tab PO BID 04/01/21 04/01/24 Unknown History aspirin 81 mg tablet,delayed 81 mg PO DAILY 09/12/23 04/01/24 03/29/24 History release rosuvastatin 40 mg tablet 40 mg PO DAILY 09/12/23 04/01/24 Unknown History Assessment and Plan Assessment Anesthesia Assessment: Chart Reviewed Final Anesthetic Review History of Problems with Anesthesia: No Documented by User: Rosy Gonzalez MD 04/01/24 08:47 PMFSH Active Problems Active Problems: All Active Problems Impingement of right shoulder (Acute) Diverticulosis (Acute) Tubular adenoma (Acute) Smoker-vapes. Last this morning Past Medical History Medical History Left shoulder pain Diverticulosis Tubular adenoma Elevated cholesterol Cervical spondylosis Smoker Family History Family history of problems with anesthesia: No Surgical History Surgical History Hx of colonoscopy Hx of umbilical hernia repair History of Problems with Anesthesia: No Social History Social History Household Members: Spouse Are you a primary critical care transport nurse to a significant other at home: No Do you presently have visiting nurse or other home services: No Alcohol intake: never Patient Tobacco Use Status: Never used Tobacco Tobacco use type: Cigarette Cigarette Packs Per Day: 1 Cigarettes Per Day: 20.0 Years Smoked: 40 Have you been hit, kicked, punched, or otherwise hurt by someone within the past year? If so, by whom?: No Are you DNR?: No Advance Directives: No Advance Directives Information Provided: Yes Recently lost weight without trying: No Nutrition Risks: No Nutritional Risk Meds Allergies Allergy/AdvReac Type Severity Reaction Status Date / Time No Known Allergies Allergy Verified 04/01/24 08:16 Home Medications ?Medication ?Instructions ?Recorded ?Confirmed ?Last Taken ?Type bupropion HCl 100 mg tablet 1 tab PO BID 04/01/21 04/01/24 Unknown History aspirin 81 mg tablet,delayed 81 mg PO DAILY 09/12/23 04/01/24 03/29/24 History release rosuvastatin 40 mg tablet 40 mg PO DAILY 09/12/23 04/01/24 Unknown History Exam Height,Weight and Vital Signs: Height 5 ft 6.5 in Weight 81.193 kg Vital Signs Temp Pulse Resp BP Pulse Ox O2 Del Method 04/01/24 08:30 98.2 F 71 18 116/72 96 Room Air Airway Mallampati Class: II TM Dist: >3cm Neck ROM: Full Denture: Upper and Lower Loose/Missing/Broken Teeth: Yes (Full dentures) Heart: RRR Lungs: CTAB Assessment and Plan Assessment Anesthesia Assessment: Anesthesia Plan Discussed and Chart Reviewed Final Anesthetic Review Family History of Problems with Anesthesia: No History of Problems with Anesthesia: No NPO: Yes ASA Class: II Final Preanesthetic Review: No Changes in Pt Med Stat, Meds/Allgs Chart Reviewed, Consent Obtained/Reviewed and Anes Risks/Benef Reviewed Patient Risk: Low Procedure Risk: Low Assessment/Block/Sedation in SS: Assess/Block/Sedation-SS Anesthetic Plan Anesthetic Plan: TIVA Disposition: Standard PACU
[2024-04-01 08:15] VITALS: BMI 28.5
--- NOTE | 2024-04-01 08:22 | MHC.SHP ---
Pre-Procedural Eval Section A - 24 Hr Update-Section A only Date of Service: 04/01/24 The patient is an INPATIENT: No The patient has been examined within 24 hours of the surgical procedure. The History & Physical has been completed within 30 days and I have reviewed it.: No Section B - Complete if H&P > 30 days Chief Complaint: Surveillance for colon polyps Relevant Family History (Specify if Yes): No Relevant Social History: Tobacco Use Present Medications: see Short Stay Collaborative assessment Medical History: Significant History (Left shoulder pain Diverticulosis Tubular adenoma Elevated cholesterol Cervical spondylosis Smoker) History of Previous Operations: Relevant previous surgery/procedure and date(s) (Hx of umbilical hernia repair) Allergies: Allergies Allergy/AdvReac Type Severity Reaction Status Date / Time No Known Allergies Allergy Verified 04/01/24 08:16 Review of Systems Sugical H&P ROS: Negative: Constitution, Cardiovascular, Respiratory and Gastrointestinal Exam Surgical H&P Exam: Normal: Heart, Normal: Lungs, Normal: Extremities and Normal: Abdomen Plan Diagnosis/Plan: Unchanged I have reviewed the history and physical and performed a pertinent physical examination on my patient. No changes have occurred unless specified. Time Spent With Patient Time: Total time managing care of this patient today ____ minutes.
[2024-04-01] MEDS: Lactated Ringers 1,000 ML 100 ML IVCONT (08:25)
[2024-04-01 08:30] VITALS: BP 116/72; PULSE 71; RESP 18; TEMP 36.8; O2SAT 96
--- NOTE | 2024-04-01 09:26 | HO.OPN-COLON ---
Colonoscopy Operative Note Operative Note Date of Service: 04/01/24 Narrative: COLONOSCOPY TILL CECUM WITH BIOPSIES, SNARE POLYPECTOMY AND HEMOCLIP PLACEMENT Pre-op diagnosis: Surveillance for colon polyps. Post-op diagnosis:? Colon polyps, Diverticulosis, hemorrhoids Endoscopist:? Neal Sears MD Anesthesia:?MAC Consent: Indications for the procedure and potential complications of bleeding, perforation, reaction to medications and missed diagnosis were discussed with the patient and informed consent was obtained. Instrument: Olympus PCF H 190 L variable stiffness pediatric colonoscope Monitoring: Vital signs and clinical assessment, intermittent blood pressure monitoring, continuous EKG monitoring, Pulse oximetry and Carbon Dioxide monitoring were done throughout the procedure. Please see anesthesia flowsheet. Colon withdrawl time was 28 minutes. Procedure: The patient was placed in the left lateral decubitis position and pre-procedure medications were administered. After a digital rectal examination of the ano-rectum, the video colonoscope was inserted into the rectum and advanced through the colon to the cecum. The colonoscope was slowly withdrawn in a retrograde panoramic fashion and the colon mucosa was carefully examined including a retroflexed view of the rectum. Findings and interventions are described below. Procedure Difficulty: without difficulty Findings: Terminal Ileum: Not evaluated Cecum: Normal Ascending Colon: Normal Transverse Colon: Two 3-4 mm sessile polyps - removed with a cold biopsy. A 7-8 mm sessile polyp - removed with a cold snare with in-advertant removal of part of surrounding mucosa creating a large mucosal defect - closed with 4 hemoclips Descending Colon: Normal Sigmoid Colon: A 4-5 mm sessile polyp removed with a cold bx. A 10-12 mm sessile polyp - removed with a hot snare. Polypectomy site was closed with 1 hemoclip. Moderate diverticulosis Rectum: Normal Ano-rectum: Moderate internal hemorrhoids Colon preparation: Good after some irrigation. [place] Bowel Preparation Scale Right colon; 2 Transverse colon: 3 Left colon; 2 (0 = Unprepared colon segment with mucosa not seen due to solid stool that cannot be cleared. 1 = Portion of mucosa of the colon segment seen, but other areas of the colon segment not well seen due to staining, residual stool and/or opaque liquid. 2 = Minor amount of residual staining, small fragments of stool and/or opaque liquid, but mucosa of colon segment seen well. 3 = Entire mucosa of colon segment seen well with no residual staining, small fragments of stool or opaque liquid) Impression and Post Procedure Diagnosis: Colonoscopy Findings: Five small to medium sized polyps were removed Moderate diverticulosis seen in the sigmoid colon Moderate hemorrhoids on retroflexed exam. Plan: I will send a letter with biopsy results. Repeat Colonoscopy in 3-5 years if polyps are adenomatous and 10 year if polyps are hyperplastic. Above findings were reviewed with the patient and relevant handouts were given and the discharge area.
[2024-04-01 09:28] VITALS: BP 97/69; PULSE 79; RESP 16; TEMP 36.5; O2SAT 96
[2024-04-01 09:43] VITALS: BP 106/55; PULSE 70; RESP 16; O2SAT 95
[2024-04-01 09:58] VITALS: BP 121/79; PULSE 64; RESP 20; TEMP 36.3; O2SAT 96
--- NOTE | 2024-04-01 10:43 | PC.NURSE ---
[place] for hemorrhoids, colon polyps, and diverticulosis provided in Japanese with the discharge instructions.
== END 2024-04-01 10:36 | disposition home or self-care (01) ==
PROVIDERS: Visit Provider Internal Medicine Gastroenterology
PROC: 0DJD8ZZ Inspection of Lower Intestinal Tract, Via Natural or Artificial Opening Endoscopic (ICD-10-PCS; CPT 45378; principal; 2024-04-01 09:20)
DX: Z12.11 Encounter for screening for malignant neoplasm of colon (principal); Z86.0101 Personal history of adenomatous and serrated colon polyps; D12.3 Benign neoplasm of transverse colon; D12.5 Benign neoplasm of sigmoid colon; K57.30 Diverticulosis of large intestine without perforation or abscess without bleeding; K64.8 Other hemorrhoids; E78.00 Pure hypercholesterolemia, unspecified; M47.812 Spondylosis without myelopathy or radiculopathy, cervical region; M75.41 Impingement syndrome of right shoulder; Z79.82 Long term (current) use of aspirin; Z79.899 Other long term (current) drug therapy; F17.210 Nicotine dependence, cigarettes, uncomplicated
CPT/HCPCS: 45385; 45380; 88305; J0330; J2003; J2704

== ENCOUNTER → 2024-04-01 07:21 | Outpatient (BNV) | payer MEDICARE, MEDICAID, SELFPAY | PROVIDERS: Visit Provider Internal Medicine Gastroenterology | DX: Z12.11 Encounter for screening for malignant neoplasm of colon (principal); Z86.0100 Personal history of colon polyps, unspecified; D12.5 Benign neoplasm of sigmoid colon; D12.3 Benign neoplasm of transverse colon; K64.8 Other hemorrhoids; K57.30 Diverticulosis of large intestine without perforation or abscess without bleeding | CPT/HCPCS: 45380; 45385 ==